=== PATIENT | female | born 1950 | race Caucasian/White ===

== ENCOUNTER → 2016-06-23 | Outpatient (CLI) | payer OTHER ==
[~2016-06-23] MED LIST: AMBIEN DPS10 MG PO; ASA325 MG PO; FLEXERIL-DPS10 MG PO; LIPO-FLAVONOID1 EACH PO; MAXZIDE-25 DPS1 TAB PO; MIRALAX PACKET17 GM PO; NEURONTIN DPS300 MG PO; NORVASC DPS10 MG PO; PRESERVISION A1 EAC2 PO; PRILOSEC DPS20 MG PO; SENOKOT DPS8.6 MG PO; TYLENOL DPS325 MG PO; ZOCOR DPS40 MG PO
== END | disposition home or self-care (01) ==
LOC: PTH.S 15:30
DX: M25.562 Pain in left knee (principal)

== ENCOUNTER → 2016-07-01 | Outpatient (CLI) | payer OTHER | END | disposition home or self-care (01) | DX: R63.4 Abnormal weight loss (principal) ==

== ENCOUNTER → 2016-07-02 | Outpatient (CLI) | payer OTHER | END | disposition home or self-care (01) | LOC: RAD.S 08:06 | DX: Z12.31 Encounter for screening mammogram for malignant neoplasm of breast (principal); R92.1 Mammographic calcification found on diagnostic imaging of breast ==